=== PATIENT | male | born 1970 | race Two or more races ===

== ENCOUNTER → 2020-08-04 | Outpatient (CLI) | payer BC ==
--- NOTE | 2020-08-04 12:42 | RAD ---
MR#: [id number] Date of Study: 08/04/2020 Ordering Physician: HELENE BRASWELL Referring Physician: YULI LOPEZ Tech: APPROVED REPORT Test Type: Exercise Stress Nurse/Tech: RT [place] (R) (N) Test Indications: chest discomfort, palpitations, fatigue Cardiac History: none Medications: see EHR Medical History: hypertension Resting ECG: sinus rhythm Resting Heart Rate: 69 bpm Resting Blood Pressure: 136/89mmHg Pretest Chest Pain: None Nurse/Tech Notes Consent: The procedure was explained to the patient in lay terms. Informed consent was witnessed. Irvin eout was entered into [employer]. History and Stress Test performed by RT Israel (R) (N) POST EXERCISE Reason for Termination: Fatigue Target HR: No Max HR: 142 bpm 83% of Maximum Predicted HR: 171 bpm Exercise duration: 8:00 min:sec, 3 Stage Exercise capacity: 10METs Max Blood Pressure: 150/72mmHg Chest Pain: No. INTERPRETATION Stress EKG Conclusion: No acute changes were noted. Other Information Quality:Average Risk Assessment: Low Risk Conclusion 1. Normal baseline EKG 2. Good exercise capacity with 10 metabolic equivalents achieved on stage III of the Ab protocol 3. Mild upsloping inferolateral ST elevations without any clear evidence of ischemia. 4. Overall low risk study. Signed by : Jonatan Solano, Electronically Approved : 08/04/2020 12:41:50
== END ==
LOC: NM 08:17
PROVIDERS: ATTEND Family Medicine
DX: R07.89 Other chest pain (principal); R00.2 Palpitations; R53.83 Other fatigue; I10 Essential (primary) hypertension
CPT/HCPCS: 93017

== ENCOUNTER 2021-04-22 13:05 | Emergency (ER) | payer BC ==
[~2021-04-22] VITALS: Ht 182.9 cm; Wt 100.4 kg
[2021-04-22 13:15] VITALS: BP 150/100
--- NOTE | 2021-04-22 13:37 | PHYS DOC ---
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 He had a piece of cake yesterday that he thinks may have had some type of drug in it. After eating the cake, he stated that he felt unusual and "out of it" for about 4 hours. He is feeling well at this time. He is going through a contentious divorce with the woman who made the cake. Review of Systems: Review of Systems: Constitutional: Denies fever or chills Eyes: Denies change in visual acuity HENT: Denies nasal congestion or sore throat Respiratory: Denies cough or shortness of breath Cardiovascular: Denies chest pain or edema GI: Denies abdominal pain, nausea, vomiting, bloody stools or diarrhea : Denies dysuria Musculoskeletal: Denies back pain or joint pain Integument: Denies rash Neurologic: Denies headache, focal weakness or sensory changes Endocrine: Denies polyuria or polydipsia Lymphatic: Denies swollen glands Psychiatric: Denies depression or anxiety Allergies: Allergies: Allergies Coded Allergies Type Severity Reaction Last Updated Verified No Known Drug Allergies 08/04/20 No Physical Exam: PE: Constitutional: Well developed, well nourished, no acute distress, non-toxic appearance. [] HENT: Normocephalic, atraumatic, bilateral external ears normal, oropharynx moist, no oral exudates, nose normal. [] Eyes: PERRLA, EOMI, conjunctiva normal, no discharge. [] Neck: Normal range of motion, no tenderness, supple, no stridor. [] Cardiovascular:Heart rate regular rhythm, no murmur [] Lungs & Thorax: Bilateral breath sounds clear to auscultation [] Abdomen: Bowel sounds normal, soft, no tenderness, no masses, no pulsatile masses. [] Skin: Warm, dry, no erythema, no rash. [] Back: No tenderness, no CVA tenderness. [] Extremities: No tenderness, no cyanosis, no clubbing, ROM intact, no edema. [] Neurologic: Alert and oriented X 3, normal motor function, normal sensory function, no focal deficits noted. [] Psychologic: Affect normal, judgement normal, mood normal. [] Current Patient Data: Vital Signs: Vital Signs Date Time Temp Pulse Resp B/P (MAP) Pulse Ox O2 Delivery O2 Flow Rate FiO2 04/22/21 13:15 98.8 95 16 150/100 (117) 98 Room Air EKG: EKG: [] Radiology/Procedures: Radiology/Procedures: [] Heart Score: C/O Chest Pain: N/A Risk Factors: Risk Factors: DM, Current or recent (<one month) smoker, HTN, HLP, family history of CAD, obesity. Risk Scores: Score 0 - 3: 2.5% MACE over next 6 weeks - Discharge Home Score 4 - 6: 20.3% MACE over next 6 weeks - Admit for Clinical Observation Score 7 - 10: 72.7% MACE over next 6 weeks - Early Invasive Strategies Course & Med Decision Making: Course & Med Decision Making Pertinent Labs and Imaging studies reviewed. (See chart for details) The patient's urine drug screen is negative. He is stable for discharge at this time. [] Dragon Disclaimer: Dragon Disclaimer: This electronic medical record was generated, in whole or in part, using a voice recognition dictation system. Departure Departure: Impression: Primary Impression: Encounter for drug screening Disposition: HOME / SELF CARE / HOMELESS Condition: STABLE Referrals: HELENE BRASWELL MD (PCP) SHER GARCIA DO Apr 22, 2021 13:37
[2021-04-22 14:06] LABS: AMPHETAMINE/METHAMPHETAMINE NEG (NEG); BARBITURATES NEG (NEG); BENZODIAZEPINES NEG (NEG); CANNABINOIDS NEG (NEG); COCAINE NEG (NEG); METHADONE NEG (NEG); OPIATES NEG (NEG); PHENCYCLIDINE NEG (NEG)
== END 2021-04-22 14:23 | disposition home or self-care (01) ==
LOC: ER 13:05
DX: Z02.83 Encounter for blood-alcohol and blood-drug test (principal)
CPT/HCPCS: 36415; 80307; 99283